=== PATIENT | female | born 1995 | race Caucasian/White ===

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

== ENCOUNTER → 2017-01-19 | Outpatient (CLI) | payer OTHER ==
--- NOTE | 2017-01-19 14:03 | REP ---
Fifth digit left hand three views : There is no fracture or dislocation. Mineralization and joint spaces are normal. There are no calcifications or foreign bodies. Impression: Negative fifth digit left hand . Signed by Davi Bennett MD 01/19/2017 01:51 P
== END ==
LOC: M WUC 12:36
PROVIDERS: ATTEND Physician Assistant
DX: S60.052A Contusion of left little finger without damage to nail, initial encounter (principal); X58.XXXA Exposure to other specified factors, initial encounter; Y92.9 Unspecified place or not applicable; Y93.9 Activity, unspecified; Y99.9 Unspecified external cause status

== ENCOUNTER 2017-02-06 22:12 | Inpatient (IN) | payer OTHER ==
[~2017-02-06] VITALS: Ht 167.6 cm; Wt 58.1 kg
[2017-02-07 00:25] LABS: CONTROL LINE UCG INT CTR LINE PRESENT
[2017-02-07 00:56] LABS: BASO % 0.4 % (0.0-1.0); EOS # 0.2 K/mm3 (0.0-0.50); EOS % 1.8 % (0.0-3.0); LARGE UNSTAINED CELL # 0.2 K/mm3 (0.0-0.4); LARGE UNSTAINED CELL % 1.5 % (0.0-4.0); LYMPH # 2.4 K/mm3 (1.5-6.5); MEAN CORPUSCULAR HEMOGLOBIN 30.8 pg (27.0-33.0); MEAN CORPUSCULAR HGB CONC 35.8 g/dl (32.0-36.5); MEAN CORPUSCULAR VOLUME 86.2 fl (80.0-96.0); MONO # 0.8 K/mm3 (0.0-0.8); NEUTROPHILS # 7.8 K/mm3 (1.8-7.7); NEUTROPHILS % 68.4 % (36.0-66.0); PLATELET COUNT, AUTOMATED 204 k/mm3 (150-450); RED CELL DISTRIBUTION WIDTH 12.5 % (11.5-14.5); WHITE BLOOD COUNT 11.4 K/mm3 (4.0-10.0)
[2017-02-07 01:39] LABS: ALBUMIN 3.5 GM/DL (3.2-5.2); ALBUMIN/GLOBULIN RATIO 1.13 (1.00-1.93); ALKALINE PHOSPHATASE 55 U/L (45-117); ALT/SGPT 14 U/L (12-78); ANION GAP 5 MEQ/L (8-16); AST/SGOT 11 U/L (15-37); BILIRUBIN,DIRECT < 0.1 MG/DL (0.0-0.2); BILIRUBIN,TOTAL 0.5 MG/DL (0.2-1.0); BLOOD UREA NITROGEN 13 MG/DL (7-18); CALCIUM LEVEL 8.2 MG/DL (8.5-10.1); CARBON DIOXIDE LEVEL 27 MEQ/L (21-32); CHLORIDE LEVEL 107 MEQ/L (98-107); CREATININE FOR GFR 0.63 MG/DL (0.55-1.02); GLUCOSE, FASTING 86 MG/DL (70-105); POTASSIUM SERUM 3.3 MEQ/L (3.5-5.1); SODIUM LEVEL 139 MEQ/L (136-145); TOTAL PROTEIN 6.6 GM/DL (6.4-8.2)
--- NOTE | 2017-02-07 06:40 | REPUSA ---
CLINICAL HISTORY: Central abdominal pain. TECHNIQUE: Endovaginal ultrasound of the pelvis was performed. FINDINGS: Comparison is made to prior exam 12/29/2016. Uterus is normal in size measuring 6.6 x3.7x4.4 cm. Endometrium is normal in thickness measuring 7.5 mm. Intrauterine device is noted in place. The right ovary measures 3.2x1.8x2.5 cm. The left ovary measures 2.7x2.1x2.4 cm. Normal bilateral ovarian flow is identified. Moderate amount of complex fluid is identified in the pelvic cul-de-sac. Right adnexal mass measuring 1.8x1.3x1.8 cm. IMPRESSION: Moderate amount of complex fluid is identified in the pelvic cul-de-sac. Right adnexal mass measuring 1.8x1.3x1.8 cm.
[2017-02-07] MEDS ORDERED: IBUPOTC PO (06:48)
[2017-02-07] MEDS ORDERED: RHOGAM 300 MCG (1500 IU) INJ (J2790) IM SCH (07:15)
--- NOTE | 2017-02-07 07:21 | HPEPDOC ---
Medical History and Physical Date of Admission [id number] History and Physical ATTENDING: Thomas Mars [facility] CHIEF COMPLAINT: abdominal pain 2 days HISTORY OF PRESENT ILLNESS: 21 y/o female (did not know was ) with IUD in place with 1-2 days of abdominal discomfort, worst right after intercourse 0230 SUN morning (yesterday), 9/10. No vaginal bleeding. No nausea /vomiting. Current pain 5/10, a dull ache. LMP 3 wks ago (unknown) and had some slight spotting 4-5 days ago. 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 OBGYN: Denies h/o STI's HOME MEDICATIONS: denies PHYSICAL EXAMINATION: VITAL SIGNS: stable, afebrile GENERAL APPEARANCE: NAD A&O ABDOMEN: soft nontender nondistended slight RLQ tenderness with deep palpation no referred pain LABORATORY DATA: Hct 34, Plt 204, HCG 1,416, A neg IMAGING: CLINICAL HISTORY: Central abdominal pain. TECHNIQUE: Endovaginal ultrasound of the pelvis was performed. FINDINGS: Comparison is made to prior exam 12/29/2016. Uterus is normal in size measuring 6.6 x3.7x4.4 cm. Endometrium is normal in thickness measuring 7.5 mm. Intrauterine device is noted in place. The right ovary measures 3.2x1.8x2.5 cm. The left ovary measures 2.7x2.1x2.4 cm. Normal bilateral ovarian flow is identified. Moderate amount of complex fluid is identified in the pelvic cul-de-sac. Right adnexal mass measuring 1.8x1.3x1.8 cm. IMPRESSION: Moderate amount of complex fluid is identified in the pelvic cul-de-sac. Right adnexal mass measuring 1.8x1.3x1.8 cm. ASSESSMENT: Early with some free fluid and a small adnexal mass on right. Hemodynamically stable. IUD in place. Possible ectopic however HCG is ~1400. Possibility of early IUP still exists, need to cross the HCG 2,000 threshold and rescan before considering surgery or MTX as long as remains stable. Or, if inappropriate rise occurs and or HCG drops then would be OK to Tx with MTX, again-as long as is stable. If pt in any way becomes unstable then may need surgery. All explained to pt and she and stated understanding. Rhogam ordered. NPO. CBC and CMP today at 1300. HCG tomorrow AM with possible rescan, all depending. Plan for OBS admit to [facility]. Sessions Will SBAR with Dr Kennedy as I am now post-call Vital Signs Vital Signs Date Time Temp Pulse Resp B/P (MAP) Pulse Ox O2 Delivery O2 Flow Rate FiO2 02/07/17 05:33 97.8 84 18 115/65 (82) 99 Room Air Laboratory Data Labs 24H Laboratory Tests 2 02/07/17 00:47: Human Chorionic Gonadotropin, Quant 1416 Home Medications Scheduled PRN Ibuprofen (Ibuprofen) 200 Mg Tab, 200 MG PO Q6H PRN for PAIN Allergies Coded Allergies: No Known Allergies (Unverified , 12/29/16) SESSIONSDIOR MD February 07, 2017 07:21
[2017-02-07] MEDS: MORPHINE 2 MG/ML 1ML SYRINGE IV PRN ×5 (08:34→20:52)
[2017-02-07 13:06] LABS: MEAN CORPUSCULAR HEMOGLOBIN 30.5 pg (27.0-33.0); MEAN CORPUSCULAR HGB CONC 34.8 g/dl (32.0-36.5); MEAN CORPUSCULAR VOLUME 87.7 fl (80.0-96.0); RED CELL DISTRIBUTION WIDTH 12.6 % (11.5-14.5); WHITE BLOOD COUNT 8.2 K/mm3 (4.0-10.0)
[2017-02-07 13:28] LABS: ALBUMIN 3.5 GM/DL (3.2-5.2); ALBUMIN/GLOBULIN RATIO 1.21 (1.00-1.93); ALKALINE PHOSPHATASE 56 U/L (45-117); ALT/SGPT 12 U/L (12-78); ANION GAP 6 MEQ/L (8-16); AST/SGOT 12 U/L (15-37); BILIRUBIN,TOTAL 0.9 MG/DL (0.2-1.0); BLOOD UREA NITROGEN 8 MG/DL (7-18); CALCIUM LEVEL 8.5 MG/DL (8.5-10.1); CARBON DIOXIDE LEVEL 26 MEQ/L (21-32); CHLORIDE LEVEL 108 MEQ/L (98-107); CREATININE FOR GFR 0.57 MG/DL (0.55-1.02); GLUCOSE, FASTING 83 MG/DL (70-105); POTASSIUM SERUM 3.7 MEQ/L (3.5-5.1); SODIUM LEVEL 140 MEQ/L (136-145); TOTAL PROTEIN 6.4 GM/DL (6.4-8.2)
[2017-02-07 14:00] VITALS: BP 118/67
[2017-02-07 14:40] VITALS: BP 128/69
[2017-02-07 22:00] VITALS: BP 113/56
[2017-02-07] MEDS: ONDANSETRON 4MG/2ML VIAL (J2405) IV SCH (23:46)
[2017-02-08] VITALS (7 sets, daily range): BP systolic 101–116; BP diastolic 50–56
[2017-02-08] MEDS: ONDANSETRON 4MG/2ML VIAL (J2405) IV SCH ×4 (03:33→15:58)
[2017-02-08] MEDS: MORPHINE 2 MG/ML 1ML SYRINGE IV PRN ×4 (03:36→12:21)
--- NOTE | 2017-02-08 07:19 | IPNPDOC ---
Text Note Date of Service The patient was seen on 02/08/17. NOTE HD2, Prog note States in pain 02/16 and has required 3 doses morphine yesterday and 1 dose at 330 with addition of Zofran as well. Was able to sleep and pain is not untolerable but definitely there. VSSAF Abd with slightly more tenderness than yesterday morning and now across her lower abdomen instead of just on the right as was yesterday, nondistended, still soft however. Pos BS. Hct 34 yest AM -> 33.6 yest @1300 Plt 204 yest AM -> 195 yest @1300 1MAY HCG 1,416 @0100 -> 2MA[facility] 2,989 @0330 a/p: Stable but still in pain and now that HCG is >2,000 a second scan will definitely say whether an IUP is present or no. RPT US this AM and depending on findings, likely a candidate for the OR today to address an ectopic likely on the right. D/W Rads and nursing team. Sessions Aaliyah MALIK, I+O Aaliyah STEPHENS I+O Laboratory Tests 02/07/17 12:47 Red Blood Count 3.83 L, Mean Corpuscular Volume 87.7, Mean Corpuscular Hemoglobin 30.5, Mean Corpuscular Hemoglobin Concent 34.8, Red Cell Distribution Width 12.6, Calcium Level 8.5, Aspartate Amino Transf (AST/SGOT) 12 L, Alanine Aminotransferase (ALT/SGPT) 12, Alkaline Phosphatase 56, Total Bilirubin 0.9 #, Total Protein 6.4, Albumin 3.5 Vital Signs Date Time Temp Pulse Resp B/P (MAP) Pulse Ox O2 Delivery O2 Flow Rate FiO2 02/08/17 06:00 98.2 75 16 108/54 (72) 98 Room Air I&O- Last 24 Hours up to 6 AM 02/08/17 06:00 Intake Total 0 ml Output Total 675 ml Balance -675 ml SESSIONS,DIOR Gamino MD February 08, 2017 07:19
--- NOTE | 2017-02-08 12:01 | REP ---
FIRST TRIMESTER ULTRASOUND: First trimester ultrasound performed utilizing transabdominal and endovaginal technique. Comparison made with prior study of 02/07/2017. Uterus measures 7.7 x 3.2 x 4.5 cm. No intrauterine gestational sac is present with an IUD within the endometrial canal. Right ovary measures 3.0 x 1.6 x 1.3 cm and left ovary 2.8 x 2.2 x 1.5 cm. Ovaries are normal in size and echotexture with no mass and no evidence of torsion, RI right ovary 0.50 and left ovary 0.58. Separate from the right ovary is a complexed right adnexal mass which is heterogeneous. Within this mass there appears to be a tiny ring like structure which is suspicious for a yolk sac and therefore highly suspicious for ectopic on the right. There is again moderate complex fluid in the pelvis. IMPRESSION: Complex right adnexal mass may contain a yolk sac and is highly suspicious for ectopic in the right adnexa. Moderate complex fluid in the pelvis. Findings are essentially unchanged compared to the prior exam of 02/07/2017. Signed by Davi Sotelo MD 02/08/2017 07:46 P
--- NOTE | 2017-02-08 12:19 | IPNPDOC ---
Text Note Date of Service The patient was seen on 02/08/17. NOTE preopcounseling RptUS shows more free fluid and no IUP despite HCG now 2900. Pt still requiring IV morphine X1 this AM. D/W her all options and she leects and I agree with operative laparoscopy, likely/possible right tube removal. Informed consent obtained and OR contacted. Plan for case this afternoon. Sessions VSAaliyah, I+O VSAaliyah I+O Laboratory Tests 02/07/17 12:47 Red Blood Count 3.83 L, Mean Corpuscular Volume 87.7, Mean Corpuscular Hemoglobin 30.5, Mean Corpuscular Hemoglobin Concent 34.8, Red Cell Distribution Width 12.6, Calcium Level 8.5, Aspartate Amino Transf (AST/SGOT) 12 L, Alanine Aminotransferase (ALT/SGPT) 12, Alkaline Phosphatase 56, Total Bilirubin 0.9 #, Total Protein 6.4, Albumin 3.5 Vital Signs Date Time Temp Pulse Resp B/P (MAP) Pulse Ox O2 Delivery O2 Flow Rate FiO2 02/08/17 10:06 20 02/08/17 06:00 98.2 75 108/54 (72) 98 Room Air I&O- Last 24 Hours up to 6 AM 02/08/17 06:00 Intake Total 0 ml Output Total 675 ml Balance -675 ml DIOR QUISPE MD February 08, 2017 12:19
[2017-02-08] MEDS ORDERED: BUPIVACAINE HCL 0.25% 30 ML VIAL As Ordered ONE (16:05)
[2017-02-08] MEDS ORDERED: LIDOCAINE 2% INJ 100 MG/5 ML SDV (FOR ANES.) As Ordered ONE (17:58)
[2017-02-08] MEDS ORDERED: PROPOFOL 200 MG/20 ML VIAL As Ordered ONE (17:58)
[2017-02-08] MEDS ORDERED: dexameTHASONE 4 MG/ML 1ML VIAL (J1100) As Ordered ONE (17:58)
[2017-02-08] MEDS ORDERED: ROCURONIUM BROMIDE 50 MG/5 ML VIAL As Ordered ONE (17:58)
[2017-02-08] MEDS ORDERED: fentaNYL 100 MCG/2 ML INJECTION (J3010) As Ordered ONE ×4 (17:58→19:05)
[2017-02-08] MEDS ORDERED: MIDAZOLAM INJ 2 MG/2 ML VIAL (J2250) As Ordered ONE (17:58)
[2017-02-08] MEDS ORDERED: GLYCOPYRROLATE INJ 0.2 MG/ML 2 ML VIAL As Ordered ONE (18:19)
[2017-02-08] MEDS ORDERED: NEOSTIGMINE 1MG/ML 5 ML SYRINGE (J2710) As Ordered ONE (18:19)
[2017-02-08] MEDS ORDERED: ONDANSETRON 4MG/2ML VIAL (J2405) As Ordered ONE (18:19)
[2017-02-08] MEDS ORDERED: KETOROLAC 60 MG/2 ML VIAL (J1885) As Ordered ONE (18:19)
[2017-02-08] MEDS ORDERED: SILVER NITRATE APPLICATOR As Ordered ONE (18:42)
--- NOTE | 2017-02-08 18:53 | IPNPDOC ---
Text Note Date of Service The patient was seen on 02/08/17. NOTE operative note DATE OF PROCEDURE: 02/08/17 PREOP DIAGNOSIS: Right ectopic POSTOP DIAGNOSIS: GISELL PROCEDURE: Operative laparoscopy, Right partial salpingectomy, IUD removal FINDINGS: Right ectopic located right at the fimbria that came easily apart from the tube. With irrigation tube still bleeding after ~5 min obs therefore removed the distal 1/2 of the right fallopian tube. Hemostasis achieved. SURGEON: Madisyn CONTACT LENS ASSISTANT: Gianni ANESTHESIA: GETA ESTIMATED BLOOD LOSS: 200 in the abdomen upon entry FLUIDS: 1000 LR, 50 cc's urine at the end DESCRIPTION OF PROCEDURE: see dictation VS,Fishbone, I+O VS, Fishbone, I+O Vital Signs Date Time Temp Pulse Resp B/P (MAP) Pulse Ox O2 Delivery O2 Flow Rate FiO2 02/08/17 14:00 99.3 86 17 110/53 (72) 98 Room Air I&O- Last 24 Hours up to 6 AM 02/08/17 06:00 Intake Total 0 ml Output Total 675 ml Balance -675 ml DIOR QUISPE MD February 08, 2017 18:53
[2017-02-08] MEDS: LR 1,000 ML IV SCH (18:54)
[2017-02-08] MEDS ORDERED: METOCLOPRAMIDE INJ 10MG/2ML VIAL (J2765) As Ordered ONE (18:55)
[2017-02-08] MEDS ORDERED: ONDANSETRON 4MG/2ML VIAL (J2405) IV PRN ×2 (19:00→19:15)
[2017-02-08] MEDS ORDERED: PERCOCET 5MG/325MG TAB PO PRN (19:00)
[2017-02-08] MEDS ORDERED: PERCOCET 5MG/325MG TAB As Ordered ONE ×2 (19:06→19:50)
[2017-02-08] MEDS: fentaNYL 100 MCG/2 ML INJECTION (J3010) IV PRN ×3 (19:07→19:48)
[2017-02-08] MEDS ORDERED: LR 1,000 ML IV SCH (19:15)
[2017-02-08] MEDS ORDERED: METOCLOPRAMIDE INJ 10MG/2ML VIAL (J2765) IV PRN (19:15)
[2017-02-08] MEDS ORDERED: MEPERIDINE INJ 25 MG/ML VIAL (J2175) IV PRN (19:15)
[2017-02-08] MEDS: PERCOCET 5MG/325MG TAB PO PRN ×2 (19:21→19:51)
[2017-02-08] MEDS: DOCUSATE SODIUM 100 MG CAP PO SCH (20:55)
[2017-02-09 00:10] VITALS: BP 102/48
[2017-02-09] MEDS: KETOROLAC 30 MG/ML VIAL (J1885) IV SCH ×2 (00:22→05:44)
[2017-02-09 01:10] VITALS: BP 127/58
[2017-02-09] MEDS: LR 1,000 ML IV SCH (01:16)
[2017-02-09] MEDS: PERCOCET 5MG/325MG TAB PO PRN ×2 (01:16→08:12)
[2017-02-09] MEDS ORDERED: diphenhydrAMINE 25 MG CAP PO ONE (03:00)
[2017-02-09 05:51] LABS: BASO % 0.1 % (0.0-1.0); EOS # 0.2 K/mm3 (0.0-0.50); EOS % 1.7 % (0.0-3.0); LARGE UNSTAINED CELL # 0.1 K/mm3 (0.0-0.4); LARGE UNSTAINED CELL % 0.9 % (0.0-4.0); LYMPH # 1.2 K/mm3 (1.5-6.5); MEAN CORPUSCULAR HEMOGLOBIN 29.9 pg (27.0-33.0); MEAN CORPUSCULAR HGB CONC 34.8 g/dl (32.0-36.5); MEAN CORPUSCULAR VOLUME 85.9 fl (80.0-96.0); MONO # 0.7 K/mm3 (0.0-0.8); MONO % 7.3 % (0.0-5.0); NEUTROPHILS # 7.9 K/mm3 (1.8-7.7); PLATELET COUNT, AUTOMATED 203 k/mm3 (150-450); RED CELL DISTRIBUTION WIDTH 12.3 % (11.5-14.5)
[2017-02-09 06:00] VITALS: BP 102/55
--- NOTE | 2017-02-09 06:24 | RO ---
DATE OF PROCEDURE: 02/08/2017 PREPROCEDURE DIAGNOSIS: Right ectopic . POSTPROCEDURE DIAGNOSIS: Right ectopic . PROCEDURE: Operative laparoscopy, right partial salpingectomy. SURGEON: Dr. Davi Mars. MANAGEMENT CONSULTING: Dr. Kurtis Archer. ANESTHESIA: General. ESTIMATED BLOOD LOSS: 200 mL in the abdomen upon entry. FLUIDS: 1000 mL LR and 50 mL of urine at the end of the procedure. SPECIMENS REMOVED: The ectopic and the distal half of the right fallopian tube. INDICATION: Patient was admitted yesterday morning with a possible ectopic on the right with a HCG quantitative level of approximately 1400. She was in stable condition with stable vitals and a stable hematocrit. Her quantitative hCG was repeated the next morning and had gone to 2900. Now that the level was high enough to definitively determine whether an intrauterine existed, a repeat ultrasound was performed which showed no intrauterine and the presence only of the IUD in the appropriate space in the intrauterine cavity. The moderate free fluid was also persistently present and patient was consent for operative laparoscopy. DESCRIPTION OF PROCEDURE: The patient was taken to the operating room from the holding area with an IV in place, placed in low lithotomy position and an exam under anesthesia was performed after endotracheal anesthesia was easily obtained. I positioned the legs myself and exam was unremarkable. She was then prepped and draped in normal sterile fashion. The speculum was placed into the vagina. The cervix was dilated to 14-Kazakh. A uterine manipulator was placed into the cervix after the IUD was removed per the patient's request. The uterine manipulator was insufflated with 5 mL of air and outer gloves removed. The patient was brought to waist high level and flattened out. 0.25% Marcaine was used to inject under the umbilicus. A small 5 mm incision was performed in the midline. The abdominal wall was tented up as far as possible and an Optiview trocar was then placed directly into the abdomen under direct visualization. Pneumoperitoneum was easily obtained and in Trendelenburg position, we identified the ectopic with the assistance of a uterine manipulator on the right. Right lower quadrant port was then placed in the same exact manner with the 0.25 % Marcaine bath prior and into the abdomen under direct visualization. This is repeated in the left lower quadrant without difficulty. The right fallopian tube was elevated and the ectopic was grasped and easily pulled free from the fimbria of the right fallopian tube. The left lower quadrant port site was then elongated to 10 mm and the EndoCatch bag was placed into the abdomen and removed the ectopic without difficulty through the 10 mm port. At this time, we copiously irrigated and removed all fluid. Close inspection of the fimbriated end of the right fallopian tube revealed a persistent bleed that did not stop with a small amount of pressure from the [place] clamp, therefore, I decided to remove the right distal portion of the right fallopian tube in order to obtain hemostasis. This was easily done with the Harmonic scalpel and hemostasis was noted. The fallopian tube was removed through the 10 mm port on the left and added to the pathology specimens. We then irrigated and suctioned the fluid that was present in the abdomen, flattened the patient out, suction irrigated as much as possible and confirmed hemostasis one last time. We then removed both the left and right lower quadrant port sites from the abdominal wall under direct visualization, let out as much CO2 as possible and removed the infraumbilical port under direct visualization as well. The fascia was reapproximated on the 10 mm left lower quadrant port site using a #2-0 Vicryl and a UR6 needle and the skin was reapproximated with a #4-0 Vicryl in subcuticular fashion. Dermabond was placed over the infraumbilical site and the right lower quadrant site being that they are only 5 mm in length. I then went below, removed easily the uterine manipulator, confirmed hemostasis and needed only a small amount of silver nitrate on the anterior lip of the cervix and all instruments were then removed from the vagina and the procedure was complete. The patient was awakened from general anesthesia without difficulty and transferred to the recovery room in stable condition. All counts were correct prior and after the procedure. DELFINA
--- NOTE | 2017-02-09 07:11 | IPNPDOC ---
Text Note Date of Service The patient was seen on 02/09/17. NOTE Called by RN in the middle of the night who stated patient felt some "chest pressure". Assured vitals were wnl and patient was in NAD. I advised her to obtain EKG, assess for GERD sx and call back with result. EKG benign, RN stated no GERD symptoms, however on further questioning of patient she endorsed that she "often feels this sensation with anxiety in the middle of the night". She does not take any anxiolytics at home. Verbal order for 25mg PO benadryl x1 to aid sleep and advised RN to call back if symptoms did not resolve and patient unable to sleep. No return call. Dr. Reyna Bowen MD VS,Aaliyah, I+O VS, Aaliyah, I+O Laboratory Tests 02/09/17 05:35 Red Blood Count 3.80 L, Mean Corpuscular Volume 85.9, Mean Corpuscular Hemoglobin 29.9, Mean Corpuscular Hemoglobin Concent 34.8, Red Cell Distribution Width 12.3, Neutrophils (%) (Auto) 79.0 H, Lymphocytes (%) (Auto) 11.0 L, Monocytes (%) (Auto) 7.3 H, Eosinophils (%) (Auto) 1.7, Basophils (%) ( Auto) 0.1, Neutrophils # (Auto) 7.9 H, Lymphocytes # (Auto) 1.2 L, Monocytes # ( Auto) 0.7, Eosinophils # (Auto) 0.2, Basophils # (Auto) 0.0 Vital Signs Date Time Temp Pulse Resp B/P (MAP) Pulse Ox O2 Delivery O2 Flow Rate FiO2 02/09/17 06:00 98.6 73 15 102/55 (71) 97 Room Air I&O- Last 24 Hours up to 6 AM 02/09/17 05:59 Intake Total 2585 ml Output Total 2000 ml Balance 585 ml REYNA BOWEN MD February 09, 2017 07:11
[2017-02-09] MEDS: DOCUSATE SODIUM 100 MG CAP PO SCH (08:11)
[2017-02-09] MEDS ORDERED: OXYC1TAB23 PO (08:38)
[2017-02-09] MEDS ORDERED: COLA100C3 PO (08:38)
--- NOTE | 2017-02-09 08:47 | DS.PDOC ---
Discharge Summary General Date of Admission February 07, 2017 at 07:05 Date of Discharge [id number] Discharge Summary PROCEDURES PERFORMED DURING STAY: Right partial salpingectomy via operative laparoscopy ADMITTING DIAGNOSES: 1. Likely Right ectopic DISCHARGE DIAGNOSES: 1. Definitive right ectopic 2. Hemoperitoneum HOSPITAL COURSE: Admitted to observation with moderate free fluid, likely ectopic but hcg 1400. Observed and rpt hcg was 2900, a second ultrasound 24 hours later confirmed no intrauteriune , and was taken to the OR and underwent an uncomplicated washout of the hemoperitoneum and a partial right salpingectomy of the distal half. Uncomplicated post-operative course. The IUD was also removed at patient request. DISCHARGE MEDICATIONS: Nuvaring, Motrin, Percocet, Colace ALLERGIES: Please see below. PHYSICAL EXAMINATION ON DISCHARGE: VITAL SIGNS: Please see below, stable GENERAL: NAD A&O ABDOMINAL EXAMINATION: Nondistended, appropr postop tenderness, incision clean and dry LABORATORY DATA: Please see below. PROGNOSIS: Excellent, slightly increased risk of future ectopic ACTIVITY: No heavy lifting for 1-2 weeks, nothing in vagina for 1 week. DIET: Regular DISCHARGE PLAN: Home, f/u [facility] with Dr Sessions DISPOSITION: Stable, improved TIME SPENT ON DISCHARGE: Greater than 15 minutes. Sessions Vital Signs/I&Os Vital Signs Date Time Temp Pulse Resp B/P (MAP) Pulse Ox O2 Delivery O2 Flow Rate FiO2 02/09/17 08:12 18 Room Air 02/09/17 06:00 98.6 73 102/55 (71) 97 I&O- Last 24 Hours up to 6 AM 02/09/17 06:00 Intake Total 2585 ml Output Total 2000 ml Balance 585 ml Laboratory Data Labs 24H Laboratory Tests 2 02/09/17 05:35: White Blood Count 10.0, Red Blood Count 3.80L, Hemoglobin 11.4L, Hematocrit 32.6L, Mean Corpuscular Volume 85.9, Mean Corpuscular Hemoglobin 29.9, Mean Corpuscular Hemoglobin Concent 34.8, Red Cell Distribution Width 12.3, Platelet Count 203, Neutrophils (%) (Auto) 79.0H, Lymphocytes (%) (Auto) 11.0L, Monocytes (%) (Auto) 7.3H, Eosinophils (%) (Auto) 1.7, Basophils (%) (Auto) 0.1 , Neutrophils # (Auto) 7.9H, Lymphocytes # (Auto) 1.2L, Monocytes # (Auto) 0.7, Eosinophils # (Auto) 0.2, Basophils # (Auto) 0.0, Large Unclassified Cells % 0.9 , Large Unclassified Cells # 0.1 CBC/BMP Laboratory Tests 02/09/17 05:35 Red Blood Count 3.80 L, Mean Corpuscular Volume 85.9, Mean Corpuscular Hemoglobin 29.9, Mean Corpuscular Hemoglobin Concent 34.8, Red Cell Distribution Width 12.3, Neutrophils (%) (Auto) 79.0 H, Lymphocytes (%) (Auto) 11.0 L, Monocytes (%) (Auto) 7.3 H, Eosinophils (%) (Auto) 1.7, Basophils (%) ( Auto) 0.1, Neutrophils # (Auto) 7.9 H, Lymphocytes # (Auto) 1.2 L, Monocytes # ( Auto) 0.7, Eosinophils # (Auto) 0.2, Basophils # (Auto) 0.0 Discharge Medications Scheduled Docusate Sodium (Colace) 100 Mg Cap, 100 MG PO BID, (Reported) Scheduled PRN Ibuprofen (Ibuprofen) 200 Mg Tab, 200 MG PO Q6H PRN for PAIN, (Reported) Oxycodone/Acetaminophen (Oxycodone/Acetaminophen 5-325 mg) 1 Tab Tab, 1 TAB PO Q4HP PRN for MILD PAIN (PS 1-4), (Reported) Allergies Coded Allergies: No Known Allergies (Unverified , 12/29/16) DIOR QUISPE MD February 09, 2017 08:47
--- NOTE | 2017-02-10 18:16 | ECGEPIP ---
Stationary ECG Study [facility] Test Date: 2017-02-09 Pat Name: CONCEPCION TRISTAN Department: Room: [place] [address] Gender: F Bench Mechanic: : 1995 Requested By: REYNA Rosado Order Number: [id number] Reading MD: Bassam Lr Measurements Intervals [place] Rate: 74 P: 56 RI: 160 QRS: 53 QRSD: 101 T: 31 QT: 380 QTc: 424 Interpretive Statements SINUS RHYTHM POSSIBLE RIGHT VENTRICULAR CONDUCTION DELAY MINIMAL REPOLARIZATION ABNORMALITY NO PRIOR TRACING IN THE SYSTEM Electronically Signed On 02-10-2017 18:16:20 EDT by Bassam Lr
== END 2017-02-09 10:45 | disposition home or self-care (01) | DRG 777 ==
LOC: M ED 23:24 → OBSVTOIN 02-07 07:05 → M ED INP 02-07 07:05 → M MSPAV 02-07 14:43 → OBSVTOIN 02-08 08:21 → INTOOBSV 02-08 08:21
PROVIDERS: ADMIT Obstetrics & Gynecology; ATTEND Obstetrics & Gynecology
PROC: 0UB54ZZ Excision of Right Fallopian Tube, Percutaneous Endoscopic Approach (ICD-10-PCS; 2017-02-08)
PROC: 0UPD8HZ Removal of Contraceptive Device from Uterus and Cervix, Via Natural or Artificial Opening Endoscopic (ICD-10-PCS; 2017-02-08)
PROC: 10D28ZZ Extraction of Products of Conception, Ectopic, Via Natural or Artificial Opening Endoscopic (ICD-10-PCS; principal; 2017-02-08 11:59)
DX: O00.90 Unspecified ectopic pregnancy without intrauterine pregnancy (principal); Z97.5 Presence of (intrauterine) contraceptive device

== ENCOUNTER → 2017-02-22 | Outpatient (CLI) | payer OTHER ==
[~2017-02-22] MED LIST changes: +COLA100C3 PO; +IBUPOTC PO; +OXYC1TAB23 PO
== END ==
LOC: M LAB 14:47
PROVIDERS: ATTEND Obstetrics & Gynecology
DX: O00.90 Unspecified ectopic pregnancy without intrauterine pregnancy (principal)

== ENCOUNTER 2017-04-24 14:57 | Emergency (ER) | payer OTHER ==
[~2017-04-24] VITALS: Ht 167.6 cm; Wt 60.2 kg
[2017-04-24 14:57] VITALS: BP 111/68
[~2017-04-24 14:57] MED LIST changes: -COLA100C3 PO; +COLA100C5 PO
[2017-04-24] MEDS ORDERED: CITA20TA4 PO (15:06)
[2017-04-24] MEDS ORDERED: CELE20TA PO (16:05)
[2017-04-24] MEDS ORDERED: CitaloPRAM (CeleXA) 20 MG TAB PO ONE (16:15)
== END 2017-04-24 16:26 | disposition home or self-care (01) ==
LOC: M ED 14:57
DX: F33.0 Major depressive disorder, recurrent, mild (principal); F90.9 Attention-deficit hyperactivity disorder, unspecified type; J45.909 Unspecified asthma, uncomplicated; Z87.59 Personal history of other complications of pregnancy, childbirth and the puerperium; Z79.899 Other long term (current) drug therapy

== ENCOUNTER 2017-05-01 13:33 | Emergency (ER) | payer OTHER ==
[~2017-05-01] VITALS: Ht 167.6 cm; Wt 60.9 kg
[~2017-05-01 13:33] MED LIST changes: +CELE20TA PO; +CITA20TA4 PO
[2017-05-01] MEDS ORDERED: nuva ring (13:45)
[2017-05-01] MEDS ORDERED: AMOX500C PO (13:45)
[2017-05-01 14:43] LABS: MEAN CORPUSCULAR HEMOGLOBIN 30.7 pg (27.0-33.0); MEAN CORPUSCULAR HGB CONC 35.2 g/dl (32.0-36.5); MEAN CORPUSCULAR VOLUME 87.1 fl (80.0-96.0); RED CELL DISTRIBUTION WIDTH 11.7 % (11.5-14.5); WHITE BLOOD COUNT 12.7 K/mm3 (4.0-10.0)
[2017-05-01 15:04] LABS: CONTROL LINE HCG INT CTR LINE PRESENT
[2017-05-01 15:09] LABS: METHADONE URINE NEGATIVE (NEGATIVE)
[2017-05-01 15:20] LABS: ALBUMIN 4.4 GM/DL (3.2-5.2); ALBUMIN/GLOBULIN RATIO 1.07 (1.00-1.93); ALKALINE PHOSPHATASE 61 U/L (45-117); ALT/SGPT 14 U/L (12-78); ANION GAP 8 MEQ/L (8-16); AST/SGOT 11 U/L (15-37); BILIRUBIN,DIRECT 0.2 MG/DL (0.0-0.2); BILIRUBIN,TOTAL 0.6 MG/DL (0.2-1.0); BLOOD UREA NITROGEN 13 MG/DL (7-18); CALCIUM LEVEL 9.5 MG/DL (8.5-10.1); CARBON DIOXIDE LEVEL 26 MEQ/L (21-32); CHLORIDE LEVEL 102 MEQ/L (98-107); CREATININE FOR GFR 0.84 MG/DL (0.55-1.02); GLUCOSE, FASTING 84 MG/DL (70-105); POTASSIUM SERUM 3.9 MEQ/L (3.5-5.1); SODIUM LEVEL 136 MEQ/L (136-145); TOTAL PROTEIN 8.5 GM/DL (6.4-8.2)
[2017-05-01] MEDS ORDERED: CELE20TA PO (16:08)
[2017-05-01 17:03] VITALS: BP 138/78
== END 2017-05-01 17:00 | disposition home or self-care (01) ==
LOC: M ED 15:33
DX: F33.8 Other recurrent depressive disorders (principal); Z79.899 Other long term (current) drug therapy
CPT/HCPCS: 36415; 80048; 80076; 80307; 84443; 84703; 85027; 99284; G0480

== ENCOUNTER 2017-06-26 21:40 | Emergency (ER) | payer OTHER ==
[~2017-06-26] VITALS: Ht 167.6 cm; Wt 59.1 kg
[~2017-06-26 21:40] MED LIST changes: +AMOX500C PO; +nuva ring
[2017-06-26 22:42] LABS: BASO % 0.3 % (0.0-1.0); EOS # 0.1 K/mm3 (0.0-0.50); EOS % 0.5 % (0.0-3.0); LARGE UNSTAINED CELL # 0.2 K/mm3 (0.0-0.4); LARGE UNSTAINED CELL % 1.4 % (0.0-4.0); LYMPH # 2.1 K/mm3 (1.5-6.5); LYMPH % 15.4 % (24.0-44.0); MEAN CORPUSCULAR HGB CONC 35.6 g/dl (32.0-36.5); MEAN CORPUSCULAR VOLUME 84.2 fl (80.0-96.0); MONO # 0.7 K/mm3 (0.0-0.8); NEUTROPHILS # 10.4 K/mm3 (1.8-7.7); NEUTROPHILS % 77.4 % (36.0-66.0); PLATELET COUNT, AUTOMATED 255 k/mm3 (150-450); RED CELL DISTRIBUTION WIDTH 12.1 % (11.5-14.5); WHITE BLOOD COUNT 13.5 K/mm3 (4.0-10.0)
[2017-06-26 22:55] LABS: CONTROL LINE HCG INT CTR LINE PRESENT
[2017-06-26 22:57] LABS: ERYTHROCYTE SEDIMENTATION RATE 6 mm/hr (0-20)
[2017-06-26 23:01] LABS: ALBUMIN 3.8 GM/DL (3.2-5.2); ALBUMIN/GLOBULIN RATIO 1.06 (1.00-1.93); ALKALINE PHOSPHATASE 51 U/L (45-117); ALT/SGPT 14 U/L (12-78); ANION GAP 10 MEQ/L (8-16); AST/SGOT 14 U/L (15-37); BILIRUBIN,DIRECT 0.1 MG/DL (0.0-0.2); BILIRUBIN,TOTAL 0.4 MG/DL (0.2-1.0); BLOOD UREA NITROGEN 6 MG/DL (7-18); CALCIUM LEVEL 8.8 MG/DL (8.5-10.1); CARBON DIOXIDE LEVEL 23 MEQ/L (21-32); CHLORIDE LEVEL 108 MEQ/L (98-107); GLUCOSE, FASTING 106 MG/DL (70-105); POTASSIUM SERUM 3.5 MEQ/L (3.5-5.1); SODIUM LEVEL 141 MEQ/L (136-145); TOTAL PROTEIN 7.4 GM/DL (6.4-8.2)
[2017-06-26] MEDS ORDERED: ALBUTEROL SULFATE 2.5 MG/0.5 ML INH NEB SOLN NEB ONE (23:15)
[2017-06-26] MEDS ORDERED: PRED20TA PO (23:57)
[2017-06-26] MEDS ORDERED: ALBU17IN2 INH (23:59)
[2017-06-27] MEDS ORDERED: ALBUTEROL SULFATE 2.5 MG/0.5 ML INH NEB SOLN NEB ONE
[2017-06-27] MEDS ORDERED: predniSONE 20 MG TAB PO ONE (00:15)
[2017-06-27 00:27] VITALS: BP 123/62
--- NOTE | 2017-06-27 01:08 | REP ---
Clinical: Chest pain and shortness of breath . Comparison: None . Technique: PA and lateral. Findings: The mediastinum and cardiac silhouette are normal. The lung harden are clear and without acute consolidation, effusion, or pneumothorax. The skeletal structures are intact and normal. Impression: 1. No acute cardiopulmonary process. Signed by Mike Mendoza MD 06/27/2017 01:00 A
--- NOTE | 2017-06-27 08:04 | ECGEPIP ---
Stationary ECG Study [facility] - ED Test Date: 2017-06-26 Pat Name: CONCEPCION TRISTAN Department: Room: - Gender: F Cpr Instructor: : 1995 Requested By: Meghan Simon PA-C Order Number: [id number] Reading MD: Derek Hamlin Measurements Intervals [place] Rate: 74 P: 68 MT: 144 QRS: 60 QRSD: 101 T: 40 QT: 386 QTc: 430 Interpretive Statements SINUS RHYTHM INC. RBBB BENIGN EARLY REPOLARIZATION SIMILAR TO 02/09/17 Electronically Signed On 06-27-2017 8:04:24 EDT by Derek Hamlin
== END 2017-06-27 00:29 | disposition home or self-care (01) ==
LOC: M ED 21:40
DX: R07.9 Chest pain, unspecified (principal); R06.02 Shortness of breath; J45.909 Unspecified asthma, uncomplicated; Z87.891 Personal history of nicotine dependence; Z79.899 Other long term (current) drug therapy